=== PATIENT | female | born 1970 | race Caucasian/White ===

== ENCOUNTER 2020-11-11 13:27 | Emergency (ER) | payer OTHER ==
[2020-11-11 16:13] LABS: BASOPHIL 0.3 % (0-2); EOSINOPHIL 4.4 % (0-5); HCT 41.4 % (37.0-47.0); HGB 13.4 g/dl (12.5-16.0); LYMPHOCYTE 15.2 % (15-48); MCH 29.8 pg (25.0-31.0); MCHC 32.4 g/dL (32.0-36.0); MCV 92.2 fL (78.0-100.0); MONOCYTE 9.9 % (0-12); MPV 10.6 fL (6.0-9.5); NEUTROPHIL 69.9 % (41-80); NRBC 0; PLT 213 K/uL (150-400); RBC 4.49 M/uL (4.20-5.40); RDW 12.9 % (11.5-14.0); WBC 7.5 K/uL (4.0-10.5)
[2020-11-11 16:24] LABS: BILIRUBIN NEGATIVE (NEGATIVE); BLOOD NEGATIVE Ery/uL (NEGATIVE); CLARITY CLEAR (CLEAR); COLOR YELLOW (YELLOW); GLUCOSE (U) NORMAL (NORMAL); LEUKOCYTES NEGATIVE Leu/uL (NEGATIVE); NITRITE NEGATIVE (NEGATIVE); PROTEIN NEGATIVE (NEGATIVE); SPECIFIC GRAVITY 1.015 (1.001-1.030); pH 6.5 (5.0-9.0)
[2020-11-11 16:47] LABS: ALBUMIN 3.8 g/dL (3.4-5.0); BILIRUBIN - TOTAL 0.6 mg/dL (0.2-1.0); BUN/CREAT RATIO (CALC) 18.8 RATIO; CREATININE 0.64 mg/dL (0.51-0.95); POTASSIUM 3.8 mmol/L (3.5-5.1); TOTAL PROTEIN 6.8 g/dL (6.4-8.2)
== END 2020-11-11 18:42 | disposition home or self-care (01) ==
LOC: FER 13:27
PROVIDERS: Nurse Practitioner Family
DX: K59.00 Constipation, unspecified (principal); Z98.51 Tubal ligation status
CPT/HCPCS: 36415; 80053; 81003; 85025; J1885; J7030; Q9967